=== PATIENT | male | born 1995 | race Caucasian/White ===

== ENCOUNTER → 2018-01-31 10:29 | Outpatient (REF) | payer SELFPAY | LOC: OM 10:29 | PROVIDERS: Visit Provider Nurse Practitioner Family | DX: Z02.83 Encounter for blood-alcohol and blood-drug test (principal) ==

== ENCOUNTER 2018-03-26 14:43 | Emergency (ER) | payer SELFPAY ==
[2018-03-26 14:48] VITALS: BP 146/60; PULSE 100; RESP 16; TEMP 38; O2SAT 98
--- NOTE | 2018-03-26 14:59 | W.ED.GENAD ---
Discharge Plan Disposition Patient Disposition: HOME Condition: Fair Discharge Details Chief Complaint: Sorethroat Clinical Impression: Pharyngitis Primary Care Provider: Maxine Coyle ED Provider: Court Pitt Home Meds and New Rx's Prescriptions: No Action No Known Home Meds RF: 0 Discharge Instructions Instructions: Pharyngitis (ED) Additional Instructions: Encourage hydration. Tylenol and/or ibuprofen as needed for discomfort or fever. Please follow-up with primary care if not improved in the next 1-2 weeks. If you develop difficulty breathing, shortness of breath, inability to stay hydrated or other new/worsening symptoms please seek care urgently once again. Please wash her hands frequently particularly when around her baby and wear a mask Referrals: Maxine Coyle MD [Primary Care Provider] - ([phone]) Discharge Data Discharge Date/Time-TO BE ENTERED AT DEPARTURE: 03/26/18 15:12 Medical Decision Making Patient is a 22-year-old male presenting today with chief complaint of sore throat. He reports that yesterday he began feeling ill. Is endorsing congestion, mild cough and sore throat. Denies any pain in his ears. States that today he noted fever. Patient is currently 38.0 ?C. He appears nontoxic. On exam, ears are clear. He does have some swelling and erythema to posterior oropharynx. No exudate. Lungs are clear bilaterally with no wheezes rales or rhonchi. Plan to treat fever with ibuprofen. He does report that he took cold medicine this morning which likely had acetaminophen in it. Patient does have a baby upstairs. He reports he has been wearing a mask and washing his hands frequently Rapid strep testing from a nursing staff is negative. Discussed these findings with the patient. Advised that given the cough and runny nose is likely viral. Encourage hydration. Advised to continue with Tylenol and ibuprofen as needed for discomfort or fever. Encouraged frequent hand hygiene as well as wearing a mask when around his . We discussed new/worsening symptoms once he care urgently once again. Advise follow-up with primary care if all the symptoms have not resolved in the next 1-2 week. All questions and concerns were addressed and he is in agreement this plan HPI General Mode of arrival: ambulatory. Date/Time Provider Initiated Documentation: 03/26/18 14:56. Limitations to Documentation: no limitations. Information obtained by: patient. History of Present Illness 22 year old M presents to the emergency department with the chief complaint of sore throat, described as moderate, Quality is described as burning, and is localized to the mouth. and it has been constant. No relieving factors improve symptom(s), Other factors that worsen symptoms (swallowing) . Patient notes cough (reports it has been mild and nonproductive) and fever/chills; denies chest pain, headaches, loss of appetite, nausea/vomiting, rash and shortness of breath. Patient did receive the following treatments prior to arrival, cold therapy Related Data Home Medications Medication Instructions Recorded Confirmed Unknown [No Known Home Meds] 09/04/12 05/27/17 Allergies Allergy/AdvReac Type Severity Reaction Status Date / Time Penicillins Allergy Unverified 03/26/18 14:50 General Stated Complaint: Sorethroat YOVANNY: 4 Review of Systems Constitutional Reports as per HPI and Denies headache(s) Eyes Denies irritation ENT Reports as per HPI, Denies vertigo, Denies ear discharge, Denies otalgia, Denies headache(s), Reports nasal congestion, Reports nasal discharge, Denies sinus pain, Denies sinus pressure and Reports sore throat Cardiovascular Denies chest pain Respiratory Reports as per HPI, Reports chest congestion, Reports cough and Denies hemoptysis Gastrointestinal Denies change in bowel habits, Denies nausea and Denies vomiting Integumentary/Breasts Denies rash Neurologic Denies vertigo and Denies headache(s) [facility] Social History Smoking/Tobacco Use Status: Former Tobacco Use Exam Const General: cooperative, healthy appearing, comfortable, no acute distress, well developed and well groomed Nutritional Appearance: average body habitus and well nourished Orientation: alert and awake [facility] Head: normal to inspection and normocephalic Ears: hearing grossly normal bilaterally, external ears normal and TM's normal bilaterally General nose exam: external nose normal Face and sinus: normal facial exam, sinuses nontender and no tenderness Mouth: oral mucosae normal, lip normal, tongue normal, oropharynx normal and moist mucous membranes Teeth and gingiva: dentition normal Throat: uvula midline, abnormal tonsil bilaterally erythema and hypertrophy 1+, no peritonsillar masses, uvula not displaced and no uvular edema Eyes General: appearance normal, both eyes and all related structures Neck Neck: normal visual inspection, full ROM, no lymphadenopathy and no meningeal signs Resp Effort & Inspection: normal respiratory effort, able to speak in complete sentences and no respiratory distress Auscultation: clear to auscultation bilaterally, no rales, no rhonchi and no wheezes Cardio Rate: regular rate Rhythm: regular rhythm Heart Sounds: S1 normal and S2 normal Skin General skin exam: no rashes or lesions noted Neuro General: alert and awake Cognition: normal cognition Speech: speech normal Gait: normal gait Psych Appearance: grossly normal and well kempt Mental Status: mental status grossly normal Speech and Movement: speech and movement normal Course Vital Signs Temperature 38.0 C H 03/26/18 14:48 Pulse 100 H 03/26/18 14:48 Respiratory Rate 16 03/26/18 14:48 Blood Pressure 146/60 H 03/26/18 14:48 Pulse Oximetry 98 03/26/18 14:48 Temperature 38.0 C H 03/26/18 14:48 Temperature Source Temporal Artery Scan 03/26/18 14:48 Pulse 100 H 03/26/18 14:48 Respiratory Rate 16 03/26/18 14:48 Respiratory Effort 03/26/18 14:50 Blood Pressure 146/60 H 03/26/18 14:48 Blood Pressure Position Sitting 03/26/18 14:48 Pulse Oximetry 98 03/26/18 14:48 Oxygen Delivery Method Room Air 03/26/18 14:48 Oxygen Flow Rate 0 03/26/18 14:48 Pain Level 6 03/26/18 14:48
[2018-03-26] MEDS: Ibuprofen 800 MG TAB PO (15:02)
--- NOTE | 2018-03-26 15:09 | ED.GENADUL_ITS ---
Discharge Plan Disposition Patient Disposition: HOME Condition: Fair Discharge Details Chief Complaint: Sorethroat Clinical Impression: Pharyngitis Primary Care Provider: Maxine Coyle ED Provider: Court Pitt Home Meds and New Rx's Prescriptions: No Action No Known Home Meds RF: 0 Discharge Instructions Instructions: Pharyngitis (ED) Additional Instructions: Encourage hydration. Tylenol and/or ibuprofen as needed for discomfort or fever. Please follow-up with primary care if not improved in the next 1-2 weeks. If you develop difficulty breathing, shortness of breath, inability to stay hydrated or other new/worsening symptoms please seek care urgently once again. Please wash her hands frequently particularly when around her baby and wear a mask Referrals: Maxine Coyle MD [Primary Care Provider] - ([phone]) Discharge Data Discharge Date/Time-TO BE ENTERED AT DEPARTURE: 03/26/18 15:12 Medical Decision Making Patient is a 22-year-old male presenting today with chief complaint of sore throat. He reports that yesterday he began feeling ill. Is endorsing congestion, mild cough and sore throat. Denies any pain in his ears. States that today he noted fever. Patient is currently 38.0 ?C. He appears nontoxic. On exam, ears are clear. He does have some swelling and erythema to posterior oropharynx. No exudate. Lungs are clear bilaterally with no wheezes rales or rhonchi. Plan to treat fever with ibuprofen. He does report that he took cold medicine this morning which likely had acetaminophen in it. Patient does have a baby upstairs. He reports he has been wearing a mask and washing his hands frequently Rapid strep testing from a nursing staff is negative. Discussed these findings with the patient. Advised that given the cough and runny nose is likely viral. Encourage hydration. Advised to continue with Tylenol and ibuprofen as needed for discomfort or fever. Encouraged frequent hand hygiene as well as wearing a mask when around his . We discussed new/worsening symptoms once he care urgently once again. Advise follow-up with primary care if all the symptoms have not resolved in the next 1-2 week. All questions and concerns were addressed and he is in agreement this plan HPI General Mode of arrival: ambulatory . Date/Time Provider Initiated Documentation: 03/26/18 14:56 . Limitations to Documentation: no limitations . Information obtained by: patient . History of Present Illness 22 year old M presents to the emergency department with the chief complaint of sore throat, described as moderate, Quality is described as burning, and is localized to the mouth. and it has been constant. No relieving factors improve symptom(s), Other factors that worsen symptoms (swallowing) . Patient notes cough (reports it has been mild and nonproductive) and fever/ chills; denies chest pain, headaches, loss of appetite, nausea/vomiting, rash and shortness of breath. Patient did receive the following treatments prior to arrival, cold therapy Related Data Home Medications Medication Instructions Recorded Confirmed Unknown [No Known Home Meds] 09/04/12 05/27/17 Allergies Allergy/AdvReac Type Severity Reaction Status Date / Time Penicillins Allergy Unverified 03/26/18 14:50 General Stated Complaint: Sorethroat YOVANNY: 4 Review of Systems Constitutional Reports as per HPI and Denies headache(s) Eyes Denies irritation ENT Reports as per HPI, Denies vertigo, Denies ear discharge, Denies otalgia, Denies headache(s), Reports nasal congestion, Reports nasal discharge, Denies sinus pain, Denies sinus pressure and Reports sore throat Cardiovascular Denies chest pain Respiratory Reports as per HPI, Reports chest congestion, Reports cough and Denies hemoptysis Gastrointestinal Denies change in bowel habits, Denies nausea and Denies vomiting Integumentary/Breasts Denies rash Neurologic Denies vertigo and Denies headache(s) [facility] Social History Smoking/Tobacco Use Status: Former Tobacco Use Exam Const General: cooperative, healthy appearing, comfortable, no acute distress, well developed and well groomed Nutritional Appearance: average body habitus and well nourished Orientation: alert and awake [facility] Head: normal to inspection and normocephalic Ears: hearing grossly normal bilaterally, external ears normal and TM's normal bilaterally General nose exam: external nose normal Face and sinus: normal facial exam, sinuses nontender and no tenderness Mouth: oral mucosae normal, lip normal, tongue normal, oropharynx normal and moist mucous membranes Teeth and gingiva: dentition normal Throat: uvula midline, abnormal tonsil bilaterally erythema and hypertrophy 1+, no peritonsillar masses, uvula not displaced and no uvular edema Eyes General: appearance normal, both eyes and all related structures Neck Neck: normal visual inspection, full ROM, no lymphadenopathy and no meningeal signs Resp Effort & Inspection: normal respiratory effort, able to speak in complete sentences and no respiratory distress Auscultation: clear to auscultation bilaterally, no rales, no rhonchi and no wheezes Cardio Rate: regular rate Rhythm: regular rhythm Heart Sounds: S1 normal and S2 normal Skin General skin exam: no rashes or lesions noted Neuro General: alert and awake Cognition: normal cognition Speech: speech normal Gait: normal gait Psych Appearance: grossly normal and well kempt Mental Status: mental status grossly normal Speech and Movement: speech and movement normal Course Vital Signs Temperature 38.0 C H 03/26/18 14:48 Pulse 100 H 03/26/18 14:48 Respiratory Rate 16 03/26/18 14:48 Blood Pressure 146/60 H 03/26/18 14:48 Pulse Oximetry 98 03/26/18 14:48 Temperature 38.0 C H 03/26/18 14:48 Temperature Source Temporal Artery Scan 03/26/18 14:48 Pulse 100 H 03/26/18 14:48 Respiratory Rate 16 03/26/18 14:48 Respiratory Effort 03/26/18 14:50 Blood Pressure 146/60 H 03/26/18 14:48 Blood Pressure Position Sitting 03/26/18 14:48 Pulse Oximetry 98 03/26/18 14:48 Oxygen Delivery Method Room Air 03/26/18 14:48 Oxygen Flow Rate 0 03/26/18 14:48 Pain Level 6 03/26/18 14:48
[2018-03-26 15:12] VITALS: PULSE 93
== END 2018-03-26 15:12 | disposition home or self-care (01) ==
LOC: ER 15:19
PROVIDERS: Emergency Provider Physician Assistant
DX: J02.9 Acute pharyngitis, unspecified (principal); Z87.891 Personal history of nicotine dependence
CPT/HCPCS: 87880; 99282

== ENCOUNTER 2019-05-12 18:39 | Emergency (ER) | payer SELFPAY ==
[2019-05-12 18:44] VITALS: BP 152/64; PULSE 77; RESP 18; TEMP 36.9; O2SAT 99
--- NOTE | 2019-05-12 19:16 | ED.GENADUL_ITS ---
Discharge Plan Disposition Patient Disposition: HOME Discharge Details Chief Complaint: DentalOral Clinical Impression: Dental infection Primary Care Provider: Fazal Tobar ED Provider: Brody Funk Home Meds and New Rx's Prescriptions: New clindamycin HCl 150 mg capsule 450 mg PO TID Qty: 57 RF: 0 No Action No Known Home Meds RF: 0 Discharge Instructions Instructions: Clindamycin (By mouth), Dental Abscess (ED) Additional Instructions: Please take full course of antibiotic as prescribed. Please take ibuprofen over the counter. Take 600mg by mouth every 6 hours as needed for pain. Please take acetaminophen (tylenol) - 650mg every 6 hours by mouth as needed for pain. Please follow-up with your dentist. Referrals: Fazal Tobar MD [Primary Care Provider] - Discharge Data Discharge Date/Time-TO BE ENTERED AT DEPARTURE: 05/12/19 20:05 Medical Decision Making 23yo m with poor dentition here with rt lower dental pain since yesterday. Mild associated facial swelling. Plan to treat for periapical abscess. Patient provided informed consent to incision and drainage. I/D performed without complication. Patient has PCN allergy. Will treat with clindamycin and have him follow-up with his dentist. Usual and customary discharge instructions were provided. Patient verbalized understanding of instructions. HPI General Mode of arrival: ambulatory . Date/Time Provider Initiated Documentation: 05/12/19 19:02 . Limitations to Documentation: no limitations . Information obtained by: patient . HPI Narrative: 23yo m former smoker here with rt molar dental pain. Pain is moderate to severe, progressive since onset yesterday. Worse on palpation. Associated mild facial swelling on right. No fever. Related Data Home Medications Medication Instructions Recorded Confirmed Unknown [No Known Home Meds] 09/04/12 05/27/17 clindamycin HCl 450 mg PO TID #57 cap 05/12/19 Previous Rx's Medication Instructions Recorded clindamycin HCl 450 mg PO TID #57 cap 05/12/19 Allergies Allergy/AdvReac Type Severity Reaction Status Date / Time Penicillins Allergy Unverified 05/14/19 13:01 General Stated Complaint: DentalOral YOVANNY: 4 Review of Systems Constitutional Constitutional: Denies fever(s) ENT Ears, Nose, Mouth, and Throat: Reports as per HPI [facility] Social History (System 05/14/19 @ 13:01 by Martha Layton Smoking/Tobacco Use Status: Former Tobacco Use Drug use: Daily Substance use type: marijuana Do you feel safe at home: Yes Do you feel safe in your relationship?: Yes Exam Const General: cooperative and no acute distress [facility] Head: normocephalic and atraumatic General nose exam: external nose normal and nares normal Face and sinus: edema on the right mandible Mouth: tongue normal, moist mucous membranes, no drooling and no muffled voice Teeth and gingiva: poor dentition and other (rt lower molar swelling along gumline, tender to palpation) Throat: posterior oropharynx normal Other: no stridor, no submandibular swelling, no trismus Eyes Conjunctivae: normal conjunctivae Sclera: normal sclerae EOM: EOM intact bilaterally Neck Neck: trachea midline and supple Skin General skin exam: no rashes or lesions noted Neuro General: alert, awake and tone normal Course Vital Signs Vital signs: Vital Signs Temperature 36.9 C 05/12/19 18:44 Pulse 77 05/12/19 18:44 Respiratory Rate 18 05/12/19 18:44 Blood Pressure 152/64 H 05/12/19 18:44 Pulse Oximetry 99 05/12/19 18:44 Temperature 36.9 C 05/12/19 18:44 Temperature Source Skin 05/12/19 18:44 Pulse 77 05/12/19 18:44 Respiratory Rate 18 05/12/19 18:44 Respiratory Effort Non-Labored 05/12/19 18:46 Blood Pressure 152/64 H 05/12/19 18:44 Blood Pressure Position Sitting 05/12/19 18:44 Pulse Oximetry 99 05/12/19 18:44 Oxygen Delivery Method Room Air 05/12/19 18:44 Oxygen Flow Rate 0 05/12/19 18:44 Pain Level 9 05/12/19 18:44 Procedures Abscess I/D Site: Other (periapical dental) Side (if applicable): Right Local Anesthetic: Other Anesthetic (benzocaine mucosal gel) Technique: Incised with #11 Blade Amount of fluid expressed (mL): 1 Irrigation: No Packing used?: None Complications: Other (none)
[2019-05-12] MEDS: Benzocaine 20% Gel 30 GM JAR MM (19:37)
[2019-05-12] MEDS: Acetaminophen 325 MG TAB 650 MG PO (19:57)
[2019-05-12] MEDS: oxyCODONE 5 MG TAB PO (19:57)
[2019-05-12] MEDS: Clindamycin 150 MG CAP 450 MG PO ×2 (19:58)
[2019-05-12 20:04] VITALS: BP 129/76; PULSE 94; RESP 17; TEMP 36.9; O2SAT 99
== END 2019-05-12 20:05 | disposition home or self-care (01) ==
LOC: ER 20:09
PROVIDERS: Emergency Provider Student in an Organized Health Care Education/Training Program; PCP Internal Medicine
DX: R68.84 Jaw pain (principal); K04.7 Periapical abscess without sinus; R22.0 Localized swelling, mass and lump, head
CPT/HCPCS: 41800

== ENCOUNTER 2020-01-27 22:24 | Emergency (ER) | payer MEDICAID, SELFPAY ==
[2020-01-27 22:52] VITALS: BP 126/68; PULSE 93; RESP 14; TEMP 37.1; O2SAT 98
--- NOTE | 2020-01-27 22:53 | ED.GENADUL_ITS ---
Discharge Plan Disposition Patient Disposition: HOME Condition: Stable Discharge Details Chief Complaint: Sorethroat Clinical Impression: Streptococcal sore throat Primary Care Provider: Fazal Tobar ED Provider: Kiara Vance Home Meds and New Rx's Prescriptions: New clindamycin HCl 300 mg capsule 300 mg PO BID 10 Days Qty: 20 RF: 0 No Action clindamycin HCl 150 mg capsule 450 mg PO TID Qty: 57 RF: 0 Discharge Instructions Instructions: Strep Throat (ED) Additional Instructions: Gargle with warm salt water up to 3 times a day as needed. Follow up with primary care provider in 3-5 days. Return to ED sooner if any worsening or concerns. Increase oral fluids. Please take Tylenol or Ibuprofen with food ever y 4-6 hours as needed for pain and swelling. Take antibiotics as prescribed. Stand Alone Forms: Work Release Referrals: Fazal Tobar MD [Primary Care Provider] - Medical Decision Making 24-year-old male presents to the ER with chief complaint of sore throat which began on Tuesday. Associated with dry nonproductive cough and body aches. Denies fever or any sick contacts. Denies any abdominal pain diarrhea or any other complaints. On initial exam does have erythemic posterior pharynx tonsils are 3+ bilaterally with positive exudate. Uvula is midline. No stridor. He does have a slightly muffled voice. 2301: At this time dexamethasone 2 mg p.o. given and clindamycin 300 mg p.o. Rapid strep swab is positive for strep throat. Discharge instructions given to patient, verbalized understanding. Instructed to salt water gargles 3 times a day as needed take Tylenol or ibuprofen every 4- 6 hours. Clindamycin 300 mg p.o. twice daily x10 days was prescribed. HPI General Mode of arrival: ambulatory . Date/Time Provider Initiated Documentation: 01/27/20 22:44 . Limitations to Documentation: no limitations . Information obtained by: patient . HPI Narrative: 24-year-old male presents to the ER with chief complaint of sore throat which began on Tuesday. Associated with dry nonproductive cough and body aches. Denies fever or any sick contacts. Denies any abdominal pain diarrhea or any other complaints. On initial exam does have erythemic posterior pharynx tonsils are 3+ bilaterally with positive e xudate. Uvula is midline. No stridor. He does have a slightly muffled voice. Related Data Home Medications Medication Instructions Recorded Confirmed clindamycin HCl 450 mg PO TID #57 cap 05/12/19 clindamycin HCl 300 mg PO BID 10 Days #20 cap 01/27/20 Previous Rx's Medication Instructions Recorded clindamycin HCl 450 mg PO TID #57 cap 05/12/19 clindamycin HCl 300 mg PO BID 10 Days #20 cap 01/27/20 Allergies Allergy/AdvReac Type Severity Reaction Status Date / Time Penicillins Allergy Unverified 05/14/19 13:01 General YOVANNY: 4 Review of Systems All systems reviewed & are unremarkable except as noted in HPI and below ENT Ears, Nose, Mouth, and Throat: Reports sore throat, Reports throat swelling and Denies tongue swelling Cardiovascular Cardiovascular: Denies chest pain and Denies chest pain at rest Respiratory Respiratory: Reports cough (Dry nonproductive) Hematologic/Lymphatic Hematologic/Lymphatic: Reports as per HPI and Reports lymphadenopathy (Positive anterior cervical lymphadenopathy) Allergic/Immunologic Allergic/Immunologic: Reports throat swelling and Denies tongue swelling [facility] Social History Smoking/Tobacco Use Status: Former Tobacco Use Drug use: Daily Substance use type: marijuana Do you feel safe at home: Yes Do you feel safe in your relationship?: Yes Exam Narrative Exam Narrative: Constitutional: Alert and oriented x3. Appears stated age. Normal body habitus. Head: Normocephalic, no trauma. Eyes: Pupils PERRLA, Red reflex noted, EOM's intact. Eyelids symmetrical without lesions, discharge, or swelling. ENT: Bilateral TM's WNL, External ear normal to inspection, no mastoid TTP, swelling, or erythema, Nasal turbinates WNL, no nasal discharge. Poor dent ition. Posterior pharynx is erythemic, positive exudate bilaterally, 3+ tonsils bilaterally uvula is midline. No stridor. Chest: RRR, Normal S1, S2, distal pulses intact. Resp: Lungs clear to auscultation bilaterally, no wheezes, rales, or rhonchi. Musculoskeletal: Normal gait, 5/5 strength to all four extremities. Skin: No suspicious rashes or lesions. Capillary refill less than 2 sec. Neurologic: Cranial nerves II-XII intact. Alert and oriented x 3. DTR's intact. Hematologic/Lymphatic: No ecchymosis, positive anterior cervical lymphadenopathy.
[2020-01-27] MEDS: Clindamycin 300 MG CAP PO (23:20)
[2020-01-27] MEDS: Dexamethasone 10 MG/ML VIAL PO (23:20)
[2020-01-27] MEDS: Ibuprofen 600 MG TAB PO (23:21)
== END 2020-01-27 23:25 | disposition home or self-care (01) ==
PROVIDERS: Emergency Provider Registered Nurse Emergency; PCP Internal Medicine
DX: J02.0 Streptococcal pharyngitis (principal)
CPT/HCPCS: 99283; J1100

== ENCOUNTER 2020-02-05 08:47 | Emergency (ER) | payer MEDICAID, SELFPAY ==
[2020-02-05 08:50] VITALS: BP 134/54; PULSE 84; RESP 16; TEMP 36.7; O2SAT 95
--- NOTE | 2020-02-05 09:12 | ED.GENADUL_ITS ---
Discharge Plan Disposition Patient Disposition: HOME Condition: Stable Discharge Details Chief Complaint: DentalOral Clinical Impression: Candidiasis of mouth Primary Care Provider: Fazal Tobar ED Provider: Kiara Vance Home Meds and New Rx's Prescriptions: New nystatin 100,000 unit/mL suspension 1 ml BC TID 10 Days Qty: 60 RF: 0 No Action clindamycin HCl 300 mg capsule 300 mg PO BID 10 Days Qty: 20 RF: 0 Discharge Instructions Instructions: Oral Candidiasis (ED) Additional Instructions: Swish and spit nystatin suspension up to 3 times a day as directed. Continue taking antibiotics as previously prescribed. Ursa teeth at least twice a day. Practice good oral hygiene. May also gargle with warm salt water up to 3 times a day as needed. Please take Tylenol or Ibuprofen with food every 4-6 hours as needed for pain and swelling. Follow up with primary care provider in 3-5 days. Return to ED sooner if any worsening or concerns. Increase oral fluids. Referrals: Fazal Tobar MD [Primary Care Provider] - Discharge Data Discharge Date/Time-TO BE ENTERED AT DEPARTURE: 02/05/20 09:47 Medical Decision Making <Willy Khan MD - Last Filed: 02/05/20 09:15> I had a [id number] encounter with the patient. I evaluated the patient. I discussed case with DRAPERY HANGER/PA and I reviewed DRAPERY HANGER/PA note and agree with note as documented <Kiara Vance - Last Filed: 02/05/20 11:11> 24-year-old male presents the ER with complaint of tongue problem. He reports on Tuesday he bit the right side of his tongue which now has a white lesion noted to the lateral and. He is currently taking clindamycin for strep throat infection. Reports having about 3 to 4 days left of prescription. He denies smoking, reports he has been gargling with warm salt water couple times a day. Upon initial exam does appear to have a white coating to his tongue possibly thrush in nature. Discussed good oral hygiene, verbalized understanding. Denies any fever, chills, chest pain, shortness of breath or any other complaints at this time. We will send patient home with nystatin oral suspension for possible thrush related to antibiotic use, was given Magic mouthwash here in department and sent home with rest of bottle instructed to alternate nystatin and Magic mouthwash as needed for symptoms. Patient verbalized understanding. Instructed on improving oral hygiene. HPI <Willy Khan MD - Last Filed: 02/05/20 09:15> General Date/Time Provider Initiated Documentation: 02/05/20 09:04 . Related Data Home Medications Medication Instructions Recorded Confirmed clindamycin HCl 300 mg PO BID 10 Days #20 cap 01/27/20 02/05/20 nystatin 1 ml BC TID 10 Days #60 ml 02/05/20 Previous Rx's Medication Instructions Recorded clindamycin HCl 300 mg PO BID 10 Days #20 cap 01/27/20 nystatin 1 ml BC TID 10 Days #60 ml 02/05/20 Allergies Allergy/AdvReac Type Severity Reaction Status Date / Time Penicillins Allergy Unverified 05/14/19 13:01 <Kiara Vance - Last Filed: 02/05/20 11:11> General Mode of arrival: ambulatory . Limitations to Documentation: no limitations . Information obtained by: patient . HPI Narrative: 24-year-old male presents the ER with complaint of tongue problem. He reports on Tuesday he bit the right side of his tongue which now has a white lesion noted to the lateral and. He is currently taking clindamycin for strep throat infection. Reports having about 3 to 4 days left of prescription. He denies smoking, reports he has been gargling with warm salt water couple times a day. Upon initial exam does appear to have a white coating to his tongue possibly thrush in nature. Discussed good oral hygiene, verbalized understanding. Denies any fever, chills, chest pain, shortness of breath or any other complaints at this time. General Stated Complaint: DentalOral YOVANNY: 4 <Kiara Vance - Last Filed: 02/05/20 11:11> Narrative: Constitutional: Negative for weight loss, alert and oriented, well groomed, normal body habitus, appears comfortable. HEENT: Denies trauma, headaches, blurry vision, nasal discharge, history of strep throat, tongue pain lesion to the right side of his tongue.. Chest: Denies chest pain, palpitations, irregular rhythm, hypertension. Respiratory: Denies Shortness of breath, cough, hemoptysis. GI: Denies abdominal pain, nausea, vomiting, diarrhea, constipation. : Denies dysuria, hematuria, flank pain, rectal bleeding. Neuro: Denies dizziness, blurry vision, weakness, syncope, headache or facial numbness. Hematologic: Denies easy bruising, intolerance to heat or cold, hair loss. PFSH <Willy Khan MD - Last Filed: 02/05/20 09:15> Social History Smoking/Tobacco Use Status: Former Tobacco Use Drug use: Daily Substance use type: marijuana Do you feel safe at home: Yes Do you feel safe in your relationship?: Yes Exam <Willy Khan MD - Last Filed: 02/05/20 09:15> [facility] Mouth/tongue images: 1. White lesion 2. White thick coating noted to tongue, adherent nonremovable. Possible thrush. <Kiara Vance - Last Filed: 02/05/20 11:11> Narrative Exam Narrative: Constitutional: Alert and oriented x3. Appears stated age. Normal body habitus. Head: Normocephalic, no trauma. Eyes: Pupils PERRLA, Red reflex noted, EOM's intact. Eyelids symmetrical without lesions, discharge, or swelling. ENT: Bilateral TM's WNL, External ear normal to inspection, no mastoid TTP, swelling, or erythema, Nasal turbinates WNL, no nasal discharge. Poor dentition, posterior pharynx erythemic no exudate. Tonsils 2+ bilaterally uvula is midline, does have white coating noted to his tongue, there is a lesion noted white approximately 0.5 cm to the right lateral aspect of his tongue. See below. Hematologic/Lymphatic: No ecchymosis, no lymphadenopathy. [facility] Head: normal to inspection Mouth/tongue images: 1. White lesion 2. White thick coating noted to tongue, adherent nonremovable. Possible thrush. <Kiara Vance - Last Filed: 02/05/20 11:11> Vital Signs Vital signs: Vital Signs Temperature 36.7 C 02/05/20 08:50 Pulse 84 02/05/20 08:50 Respiratory Rate 16 02/05/20 08:50 Blood Pressure 134/54 L 02/05/20 08:50 Pulse Oximetry 95 02/05/20 08:50 Temperature 36.7 C 02/05/20 08:50 Temperature Source Temporal Artery Scan 02/05/20 08:50 Pulse 84 02/05/20 08:50 Respiratory Rate 16 02/05/20 08:50 Respiratory Effort 02/05/20 08:54 Blood Pressure 134/54 L 02/05/20 08:50 Blood Pressure Position Sitting 02/05/20 08:50 Pulse Oximetry 95 02/05/20 08:50 Oxygen Delivery Method Room Air 02/05/20 08:50 Oxygen Flow Rate 0 02/05/20 08:50 Pain Level 8 02/05/20 09:01
[2020-02-05] MEDS: Magic Mouthwash 119 ML BTL 10 ML MM (09:35)
== END 2020-02-05 09:47 | disposition home or self-care (01) ==
PROVIDERS: Emergency Provider Registered Nurse Emergency; PCP Internal Medicine
DX: B37.0 Candidal stomatitis (principal); J02.0 Streptococcal pharyngitis
CPT/HCPCS: 99283

== ENCOUNTER 2020-09-03 16:59 | Emergency (ER) | payer MEDICAID, SELFPAY ==
[2020-09-03 17:03] VITALS: BP 149/81; PULSE 89; RESP 16; TEMP 37.1; O2SAT 96
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
[2020-09-03 19:50] VITALS: BP 129/87; PULSE 76; RESP 18; TEMP 36.7; O2SAT 98
== END 2020-09-03 21:49 | disposition home or self-care (01) ==
PROVIDERS: Emergency Provider Physician Assistant; PCP Internal Medicine
DX: S96.211A Strain of intrinsic muscle and tendon at ankle and foot level, right foot, initial encounter (principal); S06.0X0A Concussion without loss of consciousness, initial encounter; V48.5XXA Car driver injured in noncollision transport accident in traffic accident, initial encounter
CPT/HCPCS: 99284; 70450; 72125; 73610

== ENCOUNTER 2023-03-07 11:23 | Emergency (ER) | payer MEDICAID, SELFPAY ==
[2023-03-07 11:30] VITALS: BP 121/78; PULSE 63; RESP 20; TEMP 36.6; O2SAT 100
[2023-03-07 13:45] VITALS: RESP 18
--- NOTE | 2023-03-07 13:54 | ED.GENADUL_ITS ---
Discharge Plan Disposition Patient Disposition: Home Condition: Good Discharge Details Clinical Impression: Arthralgia, Muscle spasm Primary Care Provider: Fazal Tobar ED Provider: Court Pitt Home Meds and New Rx's Prescriptions: Continued methadone 10 mg/mL Syringe 100 mg PO DAILY Patient Comments: states no longer taking Discharge Instructions Instructions: Muscle Spasm (ED) Additional Instructions: Your labs are reassuring here today. As we discussed, your tick and Lyme panel is still pending. This will take about 5 business days to come back. We will call you with any positive results. In the interim, please encourage hydration. Tylenol and ibuprofen as needed for discomfort. Please call your primary care and follow-up in 1 week for reevaluation. If you develop any other new or worsening symptoms please seek care urgently once again Referrals: Fazal Tobar MD [Primary Care Provider] - Discharge Data Discharge Date/Time-TO BE ENTERED AT DEPARTURE: 03/07/23 15:17 Medical Decision Making Patient is a pleasant 27-year-old male presenting today with chief complaint of intermittent sharp pain x2 weeks. He states that the pain is primarily in the left side but can be on the right. When she has a sudden onset of pain it can be fairly diffuse and last a few minutes and suddenly stopped. He denies any fevers or chills. No trauma. States that he has had a large amount of increased stress around social issues. 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 Denies any suicidality and does feel that he has good coping skills. States he can occasionally get some tingling in his fingers but no numbness or weakness. More pain. Occasionally, patient has muscle spasms. Also endorses some fatigue On exam, patient appears nontoxic. Resting comfortably. He is neurologically intact. Normal cardiac and respiratory auscultation. No rash. Considered thyroid dysfunction regarding his fatigue, tickborne illness, electrolyte abnormality leading to muscle spasm. He declines any analgesics at this time. Will obtain baseline labs for further evaluation. Labs reviewed, no acute abnormality. Tick and Lyme panel pending. Discussed with patient. Discussed MH and he would like to hold off at this time. Encouraged stress reduction. Encouraged hydration, supportive care. ADvised close f/u with PCP. All of his questions and concerns were addressed, he is in agreement with this plan. HPI General Date/Time Provider Initiated Documentation: 03/07/23 13:54 . Limitations to Documentation: no limitations . Information obtained by: patient and RN notes reviewed . History of Present Illness 27 year old M presents to the emergency department with the chief complaint of diffuse arthralgias, more on the left side of the body , described as moderate, with intensity rated at 4. Quality is described as sharp, Patient started experiencing this week(s) and it has been intermittent. No relieving factors improve symptom(s), No exacerbating factors reported . Patient notes malaise; denies chest pain, cough, fever/chills, headaches, loss of appetite, nausea/vomiting, rash, shortness of breath and weakness. Patient did receive the following treatments prior to arrival, none Related Data Home Medications Medication Instructions Recorded Confirmed methadone 10 mg/mL oral syringe 100 mg PO DAILY 09/03/20 09/03/20 (FOR ORAL USE ONLY) Allergies Allergy/AdvReac Type Severity Reaction Status Date / Time Penicillins Allergy Unverified 03/07/23 11:34 General Stated Complaint: GenMedical YOVANNY: 4 Review of Systems Constitutional Constitutional: Reports as per HPI, Denies chills, Denies fatigue, Denies fever(s), Denies frequent falls and Denies headache(s) Eyes Eyes: Denies change in vision ENT Ears, Nose, Mouth, and Throat: Denies headache(s) Cardiovascular Cardiovascular: Denies chest pain, Denies dyspnea and Denies dyspnea on exertion Respiratory Respiratory: Denies cough, Denies dyspnea and Denies dyspnea on exertion Gastrointestinal Gastrointestinal: Denies abdominal pain, Denies change in bowel habits and Denies fecal incontinence Genitourinary Genitourinary: Reports as per HPI, Denies urinary hesitancy and Denies urinary incontinence Musculoskeletal Musculoskeletal: Reports as per HPI, Denies muscle weakness, Denies numbness, Reports stiffness and Reports tingling (intermittent tingling in fingers, none currently) Integumentary/Breasts Skin/Breast: Reports as per HPI and Denies rash Neurologic Neurologic: Reports as per HPI, Denies frequent falls, Denies headache(s), Denies localized weakness, Denies numbness, Denies sensory deficit, Reports tingling (intermittent tingling in fingers, none currently) and Denies paresthesias Endocrine Endocrine: Denies fatigue PFSH All Active Problems (Updated 03/07/23 @ 15:08 by FERMIN Caldwell) Concussion (Acute) Ankle strain (Acute) Arthralgia (Acute) Muscle spasm (Acute) Social History Smoking/Tobacco Use Status: Former Tobacco Use Smoking risk assessment performed?: Yes Alcohol Intake: current Alcohol Intake frequency: a few times a week Drug use: Occasionally Substance use type: marijuana 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 Do you feel safe at home: Yes Do you feel safe in your relationship?: Yes Exam Const General: cooperative, healthy appearing, comfortable, no acute distress, well developed, well groomed and anxious Nutritional Appearance: average body habitus and well nourished Orientation: alert and awake Eyes General: appearance normal, both eyes and all related structures Neck Neck: normal visual inspection, full ROM, no lymphadenopathy and no meningeal signs Resp Effort & Inspection: normal respiratory effort and able to speak in complete sentences Auscultation: clear to auscultation bilaterally, no rales, no rhonchi and no wheezes Cardio Rate: regular rate Rhythm: regular rhythm Heart Sounds: S1 normal and S2 normal Skin General skin exam: no rashes or lesions noted Neuro General: patient alert and patient awake Cranial Nerves: CN's II-XI intact bilaterally Cognition: normal cognition Speech: speech normal Gait: normal gait Motor: muscle tone normal throughout, strength 5/5 throughout, no movement abnormalities noted and no fasciculations Sensory Exam: no sensory deficits noted (no saddle paresthesias) DTR's: Rt Patellar: 2+, Lt Patellar: 2+, Rt Ankle: 2+ and Lt Ankle: 2+ Coordination: [id number] test normal and tandem gait normal Extrem General: normal to inspection, full ROM, capillary refill normal, no joint enlargement, no pedal edema, no calf tenderness and normal gait Psych Appearance: grossly normal and well kempt Mental Status: mental status grossly normal Speech and Movement: speech and movement normal Course Vital Signs Vital signs: Vital Signs Temperature 36.6 C 03/07/23 11:30 Pulse 63 03/07/23 11:30 Respiratory Rate 20 03/07/23 11:30 Blood Pressure 121/78 03/07/23 11:30 Pulse Oximetry 100 03/07/23 11:30 Temperature 36.6 C 03/07/23 11:30 Temperature Source Skin 03/07/23 11:30 Pulse 63 03/07/23 11:30 Respiratory Rate 18 03/07/23 13:45 Respiratory Effort Normal, Non-Labored 03/07/23 13:45 Respiratory Depth Normal 03/07/23 13:45 Respiratory Pattern Normal 03/07/23 13:45 Blood Pressure 121/78 03/07/23 11:30 Blood Pressure Position Sitting 03/07/23 11:30 Pulse Oximetry 100 03/07/23 11:30 Oxygen Delivery Method Room Air 03/07/23 11:30 Oxygen Flow Rate 0 03/07/23 11:30 Pain Level 4 03/07/23 11:30 PAWSS Have you Been Recently Intoxicated or Drunk Within the Last 30 days?: No Have you Ever Experienced Previous Episodes of Alcohol Withdrawal?: No Have you ever Experienced Withdrawal Seizures?: No Have you ever Experienced Delirium Tremens(DT)s?: No Have you ever undergone Alcohol Rehabilitation Treatment (i.e, inpt ot outpatient treatment programs)?: No Have you ever Experienced Blackouts?: No Have you ever Combined Alcohol with other Downers within the last 90 days?: No Have you ever Combined Alcohol with any other Substance of Abuse during the last 90 days?: No Positive Blood Alcohol level on Presentation? [PCS.BAL]: No Evidence of Increased Autonomic Activity (i.e. HR>120, tremor, sweating, agitation, nausea)?: No Result: 0
[2023-03-07 14:34] LABS: Abs Immature Grans 0.04 10^3/uL (0.0-0.06); Absolute Basophil Count 0.06 10^3/uL (0.0-0.2); Absolute Eosinophil Count 0.31 10^3/uL (0.0-0.7); Absolute Monocyte Count 0.63 10^3/uL (0.1-0.8); Absolute Neutrophil Count 6.22 10^3/uL (1.2-6.7); Basophils % 0.6; Eosinophils % 3.1; HCT 47.9 % (40.0-50.0); HGB 16.4 g/dL (13.5-17.5); Immature Grans % 0.4; Lymphocytes % 27.8; MCH 28.9 pg (27.0-33.0); MCHC 34.2 % (32.0-36.0); MCV 85 fL (80-95); MPV 10.9 fL (8.0-11.0); Monocytes % 6.3; Neutrophils % 61.8; Platelet Count 272 10^3/uL (130-400); RBC 5.67 10^6/uL (4.36-5.78); RDW-SD 40.3 fL; WBC 10.06 10^3/uL (4.4-10.8)
[2023-03-07 15:01] LABS: ALT 22 U/L (16-63); AST 12 U/L (15-37); Albumin 4.1 g/dL (3.4-5.0); Alkaline Phosphatase 60 U/L (46-116); Anion Gap 8.8 mmol/L (3-11); BUN 15 mg/dL (7-18); Bilirubin, Total 0.3 mg/dL (0.2-1.0); CO2 25.2 mmol/L (21.0-32.0); CREATININE 0.8 mg/dL (0.70-1.30); Calcium 9.4 mg/dL (8.5-10.1); Chloride 102 mmol/L (98-107); Estimated GFR 123.63 (mL/min/1.73m2); Glucose 95 mg/dL (74-106); Sodium 136 mmol/L (136-145); TSH (W/Ref FT4) 0.96 uIU/mL (0.36-3.74); Total Protein 8.4 g/dL (6.4-8.2)
[2023-03-07 15:16] VITALS: BP 130/75; PULSE 77; RESP 18; O2SAT 98
[2023-03-08 10:23] LABS: Lyme Ab w Rflx to Lyme Confirm Negative (Negative)
[2023-03-09 12:40] LABS: Anaplasma phagocytophilum Negative (Negative); B. miyamotoi PCR Negative (Negative); Babesia divergens/MO-1 Negative (Negative); Babesia duncani Negative (Negative); Babesia microti Negative (Negative); Ehrlichia chaffeensis Negative (Negative); Ehrlichia ewingii/canis Negative (Negative); Ehrlichia muris eauclairensis Negative (Negative)
== END 2023-03-07 15:17 | disposition home or self-care (01) ==
PROVIDERS: Emergency Provider Physician Assistant; PCP Internal Medicine
DX: M79.18 Myalgia, other site (principal); M62.838 Other muscle spasm; Z87.891 Personal history of nicotine dependence
CPT/HCPCS: 36415; 80053; 87798; 99283; 83735; 84443; 85025; 86618

== ENCOUNTER 2023-09-24 20:49 | Emergency (ER) | payer SELFPAY ==
[2023-09-24 20:50] VITALS: BP 163/88; PULSE 115; RESP 20; TEMP 37.3; O2SAT 97
--- NOTE | 2023-09-24 21:29 | ED.GENADUL_ITS ---
Discharge Plan Disposition Patient Disposition: Home Condition: Improving Discharge Details Clinical Impression: Cellulitis of foot Primary Care Provider: Fazal Tobar ED Provider: Ollie Fatima Home Meds and New Rx's Prescriptions: New clindamycin HCl 300 mg capsule 300 mg PO Q6H 7 Days Qty: 28 0RF Discharge Instructions Instructions: Cellulitis (ED) Additional Instructions: Please return to the emergency department for any worsening symptoms HPI General Date/Time Provider Initiated Documentation: 09/24/23 21:16 . HPI Narrative: 27-year-old male who presents with right foot swelling since last night pain redness and warmth. Related Data Home Medications Medication Instructions Recorded Confirmed clindamycin HCl 300 mg capsule 300 mg PO Q6H 7 days #28 caps 09/24/23 Previous Rx's Medication Instructions Recorded clindamycin HCl 300 mg capsule 300 mg PO Q6H 7 days #28 caps 09/24/23 Allergies Allergy/AdvReac Type Severity Reaction Status Date / Time Penicillins Allergy Anaphylaxis Unverified 09/24/23 20:54 General Stated Complaint: Cellulitis YOVANNY: 3 Review of Systems Narrative: Review of Systems Constitutional: negative Eyes: negative ENT: negative Cardiovascular: negative Respiratory: negative Gastrointestinal: negative : negative Musculoskeletal: Foot pain, redness, warmth Skin: negative Neurologic: negative Psych: negative Exam Narrative Exam Narrative: Physical Examination General: alert, awake, cooperative, resting comfortably, no acute distress HEENT: normocephalic, atraumatic Respiratory: normal respiratory effort, speaking in full sentences Cardiac: Tachycardia, regular rhythm, S1S2 intact, no murmurs rubs or gallops GI: abdomen soft, non-tender, non-distended; no palpable mass or hepatosplenomegaly Skin: Induration erythema and warmth involving dorsum of right foot surrounding nidus shallow ulceration to dorsum, area of induration erythema and warmth extend over the lateral aspect of foot, DP pulse intact sensate full range of motion no crepitus no bulla no purulence no fluctuance Neuro: AAOx3, normal speech, moving all extremities Extremities: See skin; full range of motion bilateral lower extremities neurovascular exam intact Psych: Appropriate mood and affect Course Vital Signs Vital signs: Vital Signs Temperature 37.3 C 09/24/23 20:50 Pulse 115 H 09/24/23 20:50 Respiratory Rate 09/24/23 20:50 Blood Pressure 163/88 H 09/24/23 20:50 Pulse Oximetry 97 09/24/23 20:50 Temperature 37.3 C 09/24/23 20:50 Temperature Source Skin 09/24/23 20:50 Pulse 115 H 09/24/23 20:50 Respiratory Rate 20 09/24/23 20:50 Respiratory Effort Normal, Non-Labored 09/24/23 20:54 Blood Pressure 163/88 H 09/24/23 20:50 Blood Pressure Position Sitting 09/24/23 20:50 Pulse Oximetry 97 09/24/23 20:50 Oxygen Delivery Method Room Air 09/24/23 20:50 Oxygen Flow Rate 0 09/24/23 20:50 Pain Level 7 09/24/23 20:50 Lab/Test Results Lab/Test Results: 09/24/23 21:16 Blood Blood Culture - Pending 09/24/23 21:16 Blood Blood Culture - Pending Medical Decision Making 27-year-old male presents with cellulitis to the dorsum of his right foot red ness induration warmth developed over the last day no crepitus no bulla no fluctuance no purulence, likely nidus shallow ulceration to dorsum of foot, patient has been wearing work boots over the last 2 days working extensively outdoors. Neurovascular exam of limb intact. No to be tachycardic on arrival otherwise afebrile nontoxic. Will obtain cultures, basic labs, will administer empiric clindamycin given concern for cellulitis. No evidence of necrotizing fasciitis at this time given examination close reassessment of symptoms after medication including anti-inflammatory and fluids. Consider home with oral antibiotics versus admission for close observation 23: 33 great improvement of physical symptoms and vital signs after fluids and antibiotics. Reduction of erythema and induration in foot. Patient responding to clindamycin will transition to oral clindamycin as outpatient. 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
[2023-09-24] MEDS: CLINDAMYCIN 600 MG/50 ML BAG 100 MG IVPB (21:39)
[2023-09-24] MEDS: Normal Saline 1,000 ML 1000 ML IV (21:39)
[2023-09-24] MEDS: Ketorolac 15 MG/ML VIAL IVP (21:39)
[2023-09-24 21:45] LABS: Absolute Lymphocyte Count 2.03 10^3/uL (1.2-3.4); Absolute Monocyte Count 1.76 10^3/uL (0.1-0.8); Basophils % 0.2; Eosinophils % 0.2; HCT 40.5 % (40.0-50.0); HGB 13.7 g/dL (13.5-17.5); Immature Grans % 0.5; Lymphocytes % 10.5; MCH 28.4 pg (27.0-33.0); MCHC 33.8 % (32.0-36.0); MCV 84 fL (80-95); MPV 10.9 fL (8.0-11.0); Monocytes % 9.1; Neutrophils % 79.5; Platelet Count 265 10^3/uL (130-400); RBC 4.83 10^6/uL (4.36-5.78); RDW 13.1 % (11.8-14.1); WBC 19.38 10^3/uL (4.4-10.8)
[2023-09-24 21:58] LABS: Absolute Basophil Count 0.04 10^3/uL (0.0-0.2); Absolute Eosinophil Count 0.04 10^3/uL (0.0-0.7); Absolute Neutrophil Count 15.41 10^3/uL (1.2-6.7); Diff Comment Diff Reviewed; RBC Morphology Normal
[2023-09-24 22:00] LABS: ALT 24 U/L (16-63); AST 22 U/L (15-37); Alkaline Phosphatase 84 U/L (46-116); Anion Gap 10.9 mmol/L (3-11); BUN 13 mg/dL (7-18); Bilirubin, Total 1.1 mg/dL (0.2-1.0); CO2 26.1 mmol/L (21.0-32.0); CREATININE 0.9 mg/dL (0.70-1.30); Calcium 9.3 mg/dL (8.5-10.1); Chloride 102 mmol/L (98-107); Estimated GFR 119.31 (mL/min/1.73m2); Glucose 136 mg/dL (74-106); Potassium 3.3 mmol/L (3.5-5.1); Sodium 139 mmol/L (136-145); Total Protein 8.4 g/dL (6.4-8.2)
[2023-09-24 23:02] VITALS: BP 156/82; PULSE 98; O2SAT 97
[2023-09-24 23:51] VITALS: BP 176/94; PULSE 92; RESP 18; O2SAT 96
== END 2023-09-24 23:55 | disposition home or self-care (01) ==
PROVIDERS: Emergency Provider Emergency Medicine; PCP Internal Medicine
DX: L03.115 Cellulitis of right lower limb (principal); Z87.891 Personal history of nicotine dependence
CPT/HCPCS: 36415; 80053; 87040; 96365; 96375; 99284; 85025; 99283; J0737; J1885

== ENCOUNTER 2023-10-02 15:36 | Emergency (ER) | payer SELFPAY ==
--- NOTE | 2023-10-02 15:41 | ED.GENADUL_ITS ---
Discharge Plan Discharge Details Chief Complaint: PsychEval Clinical Impression: Auditory hallucinations Primary Care Provider: Fazal Tobar ED Provider: Sergio Holloway [facility] General Date/Time Provider Initiated Documentation: 10/02/23 15:39 . [facility] Narrative: MDM This is an anxious appearing normothermic and not tachycardic 27-year-old male with history of cocaine use and is now auditory hallucinations concerning for t he possibility of rhabdomyolysis for which patient will undergo labs, ECG and monitoring. Patient denies suicidal and homicidal ideation however will have him meet with [facility] when he is medically cleared. He also reports not being adherent with his antibiotics for his right foot cellulitis. Currently his right foot has no signs of cellulitis and no indication for additional antibiotics. No pain or proportion to suggest necrotizing soft tissue infection. Not altered to suggest encephalitis. No nuchal rigidity to suggest meningitis. Patient is not altered nor febrile to suggest anticholinergic toxidrome. No opiate use no respiratory depression so doubt opiate toxidrome. Patient denies history of ethanol use so not suspicious for ethanol withdrawal. Patient does have an elevated blood pressure and this certainly could be secondary to sympathomimetic toxidrome. Will monitor in the ED and reassess. Patient is feeling quite anxious and will provide 1 mg of oral lorazepam as I do not want to provide sodium channel blocking hydroxyzine prior to ECG given concern for possible cocaine toxicity. 4:30 PM CBC with mild leukocytosis and mild anemia. Compared to prior leukocytosis improved anemia is new. No thrombocytopenia. 5 PM Negative ethanol level. Negative acetaminophen level. Basic metabolic panel showing very mild hyperglycemia but no anion gap. Normal bicarbonate??not consistent with DKA. Normal creatinine. No BITA. CK mildly elevated twice upper limit of normal at 597 units/L. Given less than 5 times greater than the upper limit of normal and well less than 2000 I am not suspicious for rhabdomyolysis so no indication for IV hydration as patient is taking p.o. and making urine. Normal salicylates. Normal TSH. 5:15 PM Patient tolerated p.o. but was quite restless. I offered him intramuscular medicines which he accepted. I ordered 10 mg of intramuscular diazepam given his choreoathetoid movements. 6 PM Patient resting more comfortably following 10 mg of diazepam. Negative troponin. 10:28 PM Patient assessed multiple times throughout my shift. He has been calm sleeping following diazepam. He will require reassessment with possibility of crisis evaluation if he has persistent hallucinations. I have ordered a urinalysis to assess for myoglobinuria. Will sign patient out to the oncoming overnight provider. Chronic conditions affecting the care of the patient: N/A History obtained from an outside historian: Patient's sister External record review: No [facility] EMR records Diagnostic interpretations performed by me: Per my independent interpretation EKG shows: Normal sinus rhythm at a rate of 62 with interventricular conduction delay and a QRS of 111 ms. VT and QTc within normal limits. No ST segment abnormalities. No T wave inversion. No acute injury pattern. No prior for comparison. ]Medications: Lorazepam Social determinants of health affecting disposition: N/A Management discussed with: Oncoming overnight provider . Treatment/interventions considered: N/A Response to therapies provided: N/A HPI This is a previously healthy 27-year-old male arrived to the emergency department via private vehicle with his sister in the setting of auditory hallucinations. Patient reports feeling anxious and fidgety. He feels intermittently like his hands and feet are hot and swollen. He insufflated co shay 2 days ago. He denies routine tobacco, ethanol and illicits. He was recently treated for right foot cellulitis with clindamycin. He did not complete his course of clindamycin. He feels like the cellulitis has moved into his hands. He denies chest pain. She denies homicidal and suicidal ideation. He denies visual hallucinations. He denies prior history of similar symptoms. He is on no routine medications. Sister says that the patient was exceedingly anxious at home and paramedics were called. Patient reportedly declined transfer. He denies fevers chills nausea vomiting chest pain shortness of breath. Exam General: Well-appearing in no mild distress speaking in complete sentences. Head: Normocephalic, atraumatic. Eye: Extraocular eye movements intact. No conjunctival injection. No scleral icterus. Ear, nose, mouth, throat: Grossly normal inspection. Normal voice, handling secretions normally. Neck: Trachea midline. Cardiovascular: Well-perfused distal extremities. Respiratory: Nonlabored respiration. Gastrointestinal: Nondistended abdomen. Musculoskeletal: No edema. Moving all 4 extremities spontaneously. Skin: Bilateral feet warm well-perfused with 2+ PT and DP pulses. No signs of cellulitis to bilateral lower extremities. Neurologic: Alert and appropriate, no apparent acute deficits. GCS 15. Patient with choreoathetoid movements Psychiatric: Anxious and intermittently tremulous. No flight of ideas. No pressured speech. Related Data Allergies Allergy/AdvReac Type Severity Reaction Status Date / Time Penicillins Allergy Anaphylaxis Unverified 09/24/23 20:54 General YOVANNY: 3 Medical Decision Making Quality:SDOH Health Related Social Needs: No Data to Display PFSH All Active Problems (Updated 10/02/23 @ 16:10 by Sergio Holloway MD) Auditory hallucinations (Acute) Cellulitis of foot (Acute) Ankle strain (Acute) Concussion (Acute) Social History Smoking/Tobacco Use Status: Former Tobacco Use Smoking risk assessment performed?: Yes Alcohol Intake: current Alcohol Intake frequency: a few times a week Drug use: Occasionally Substance use type: marijuana and crack/cocaine Housing: house Do you feel safe at home: Yes Do you feel safe in your relationship?: Yes
[2023-10-02 15:50] VITALS: BP 158/108; PULSE 96; RESP 20; TEMP 37.1; O2SAT 98
--- NOTE | 2023-10-02 16:00 | RT.EKG_ITS ---
APPROVED REPORT Exam: Resting ECG Reason for Exam: Cocaine Patient Location: E HR:62 bpm ECG Measurements Heart Rate 62 AXIS WA 139 P -7 QRSd 111 QRS 28 QT 394 T 25 QTc 393 Conclusion Sinus rhythm...normal P axis, V-rate 60- 99 Atrial premature complexes in couplets...pair SV complexes w/ short R-R Normal sinus rhythm at a rate of 62 with interventricular conduction delay and a QRS of 111 ms. WA a nd QTc within normal limits. No ST segment abnormalities. No T wave inversion. No acute injury pat tern. No prior for comparison.
[2023-10-02 16:29] LABS: Abs Immature Grans 0.04 10^3/uL (0.0-0.06); Absolute Basophil Count 0.05 10^3/uL (0.0-0.2); Absolute Eosinophil Count 0.34 10^3/uL (0.0-0.7); Absolute Lymphocyte Count 2.62 10^3/uL (1.2-3.4); Absolute Monocyte Count 1.26 10^3/uL (0.1-0.8); Basophils % 0.5; Eosinophils % 3.1; HCT 39.3 % (40.0-50.0); HGB 13.2 g/dL (13.5-17.5); Immature Grans % 0.4; Lymphocytes % 23.9; MCH 28.3 pg (27.0-33.0); MCHC 33.6 % (32.0-36.0); MCV 84 fL (80-95); MPV 10.7 fL (8.0-11.0); Monocytes % 11.5; Neutrophils % 60.6; Platelet Count 324 10^3/uL (130-400); RBC 4.67 10^6/uL (4.36-5.78); RDW 12.9 % (11.8-14.1); WBC 10.97 10^3/uL (4.4-10.8)
[2023-10-02 16:30] LABS: Absolute Neutrophil Count 6.65 10^3/uL (1.2-6.7)
[2023-10-02] MEDS: LORazepam 1 MG TAB PO (16:40)
[2023-10-02 16:52] LABS: Anion Gap 10.3 mmol/L (3-11); BUN 15 mg/dL (7-18); CO2 26.7 mmol/L (21.0-32.0); CREATININE 0.9 mg/dL (0.70-1.30); Calcium 8.5 mg/dL (8.5-10.1); Chloride 103 mmol/L (98-107); Creatine Kinase 597 U/L (39-308); Estimated GFR 119.31 (mL/min/1.73m2); Glucose 110 mg/dL (74-106); Potassium 3.8 mmol/L (3.5-5.1); Sodium 140 mmol/L (136-145)
[2023-10-02 16:54] LABS: Salicylate < 2.8 mg/dL (<2.8)
[2023-10-02 16:55] LABS: Acetaminophen < 2 ug/mL (10-30)
[2023-10-02 17:00] LABS: ETHANOL BLOOD < 3.0 mg/dL (<10)
[2023-10-02 17:38] LABS: Troponin I < 50 ng/L (< or =60)
[2023-10-02] MEDS: diazePAM 10 MG/2 ML SYR IM (18:37)
--- NOTE | 2023-10-02 23:28 | W.EDPROG ---
Date of service: 10/02/23 Time of Service: 23:28 Medical Decision Making This patient was signed out to me. Please see previous notes for H&P and initial eval. In brief, 27yo M presenting with agitation and hallucinations after using cocaine. Thought to be 2/t to drug use. CK mildly elevated, labs otherwise reassuirng. Medicated with benzodiazapenes and now sleeping comfortably. Plan to allow time to metabolize and reassess; may need psychiatric evaluation if mental status does not clear. Overnight appeared to be sleeping. Did not wake for assessment. Signed out to oncoming physician, plan remains as above. Quality:[facility] Health Related Social Needs: No Data to Display Sign Out Sign Out Data: Sign Out Comment: Patient with cocaine use and agitation with mildly elevated CK and choreiform movements now resting status post intramuscular diazepam and oral lorazepam. Patient will require reassessment and if he has persistent hallucinations need to meet with [facility] human services. Urinalysis ordered to assess for myoglobinuria. Last updated by Sergio Holloway MD at 10/02/23 22:33 Discharge Plan Discharge Details Chief Complaint: PsychEval Clinical Impression: Auditory hallucinations Primary Care Provider: Fazal Tobar ED Provider: Zayra Albarran
[2023-10-03 07:54] LABS: Bilirubin Small (Negative); Blood Negative (Negative); Clarity Clear (Clear); Glucose Negative (Negative); Ketones 40 mg/dL (Negative); Leukocyte Esterase Negative (Negative); Nitrite Negative (Negative); Specific Gravity 1.025 (1.005-1.025); Urobilinogen 0.2 mg/dL (Up to 0.2)
[2023-10-03 07:57] LABS: *AMPHETAMINES SCREEN URINE Negative (Negative); *BARBITURATES SCREEN URINE Negative (Negative); *BENZODIAZEPINES SCREEN URINE Positive (Negative); Cannabinoids THC Positive (Negative); Cocaine Screen,Urine Positive (Negative); METHADONE URINE SCREEN Negative (Negative); OPIATES URINE SCREEN Negative (Negative)
[2023-10-03 08:02] LABS: Tricyclic Antidepressants Negative (Negative)
--- NOTE | 2023-10-03 12:00 | ED.PROG_ITS ---
Date of service: 10/03/23 Time of Service: 12:00 Medical Decision Making Patient was signed out to me by my colleague for follow-up/reassessment. Patient is alert and interactive, he denies any homicidal or suicidal ideations. Patient appears well. He has been seen and assessed by mental health. They feel that he is in a good place for safety plan and disposition home. Patient will be discharged home. Discussed red flags which to return. I have extensively reviewed the treatment plan and discharge instructions with the patient. I have addressed all patient concerns at this time. The patient was made aware of what symptoms to monitor for that would warrant a return to the emergency department. Discussed the plan with the patient, they demonstrate verbal understanding and agreement with our assessment and plan at this time. The documentation in this chart was dictated using [employer] dictation software. Please excuse any dictation errors. Quality:[facility] Health Related Social Needs: No Data to Display Sign Out Sign Out Data: Sign Out Comment: Patient with cocaine use and agitation with mildly elevated CK and choreiform movements now resting status post intramuscular diazepam and oral lorazepam. Patient will require reassessment and if he has persistent hallucinations need to meet with [facility] human services. Urinalysis ordered to assess for myoglobinuria. Last updated by Sergio Holloway MD at 10/02/23 22:33 Sign Out Comment: 27yo M presenting with agitation and hallucinations after using cocaine. Thought to be 2/t to drug use. CK mildly elevated, labs otherwise reassuring. Medicated with benzodiazepines and now sleeping comfortably. Plan to allow time to metabolize and reassess; may need psychiatric evaluation if mental status does not clear. Pending UA for myoglobin, reassessment when awake. Last updated by Zayra Albarran MD at 10/03/23 06:25 Discharge Plan Disposition Patient Disposition: Home Condition: Good Discharge Details Chief Complaint: PsychEval Clinical Impression: Auditory hallucinations Primary Care Provider: Fazal Tobar ED Provider: Partha Jo Discharge Instructions Additional Instructions: Please follow-up closely with your mental health advocates for continued management. Please utilize the resources you have been provided. If you notice any worsening of your symptoms, or any new symptoms such as vomiting, diarrhea, fever, chills, shortness of breath, chest pain, numbness, weakness, or fainting , please return immediately to the emergency department for reevaluation. Please follow up with your primary care provider as soon as possible for reassessment and reevaluation. As always, it was a pleasure participating in your medical care today. Referrals: Fazal Tobar MD [Primary Care Provider] -
--- NOTE | 2023-10-03 13:26 | CMPROGNOTE_ITS ---
Date of service: 10/03/23 Time of Service: 13:26 Care Management Progress Note Progress Note Text Progress Note Text: GRACIE huddled with staff regarding Leno's plan of care. Pro [facility], stated that he and Leno created a safety plan, and Leno will be discharged home with close follow up from [facility]. was in the huddle, and agreed with the plan for discharge.
--- NOTE | 2023-10-03 13:26 | PDOC.CMPRO ---
Date of service: 10/03/23 Time of Service: 13:26 Care Management Progress Note Progress Note Text Progress Note Text: GRACIE huddled with staff regarding Leno's plan of care. Pro [facility], stated that he and Leno created a safety plan, and Leno will be discharged home with close follow up from [facility]. was in the huddle, and agreed with the plan for discharge.
[2023-10-03 14:11] VITALS: BP 134/78; PULSE 78; RESP 16; TEMP 37.1; O2SAT 98
--- NOTE | 2023-10-04 11:58 | NUR.NOTE ---
Accessed Pt chart to obtain the V number to be able to print a label
== END 2023-10-03 14:17 | disposition home or self-care (01) ==
PROVIDERS: Emergency Medicine; Emergency Provider Student in an Organized Health Care Education/Training Program; PCP Internal Medicine
DX: R44.0 Auditory hallucinations (principal); F41.9 Anxiety disorder, unspecified; L98.9 Disorder of the skin and subcutaneous tissue, unspecified; G25.5 Other chorea; F14.90 Cocaine use, unspecified, uncomplicated; Z88.0 Allergy status to penicillin
CPT/HCPCS: 00123; 80048; 80307; 82550; 93005; 96372; 99285; 80320; 80329; 81003; 84443; 84484; 85025; 93010; J3360

== ENCOUNTER 2025-05-24 12:38 | Outpatient (REF) | payer MEDICAID, SELFPAY ==
[2025-05-24 16:02] LABS: Abs Immature Grans 0.04 10^3/uL (0.0-0.06); HCT 42.4 % (40.0-50.0); HGB 14.0 g/dL (13.5-17.5); Immature Grans % 0.4 %; MCH 27.0 pg (27.0-33.0); MCHC 33.0 % (32.0-36.0); MCV 82 fL (80-95); MPV 11.6 fL (8.0-11.0); Platelet Count 309 10^3/uL (130-400); RBC 5.19 10^6/uL (4.36-5.78); RDW 13.3 % (11.8-14.1); RDW-SD 39.4 fL; WBC 11.03 10^3/uL (4.4-10.8)
[2025-05-24 17:06] LABS: Hemoglobin A1C 5.0 % (<5.7)
[2025-05-24 17:47] LABS: TSH (W/Ref FT4) 1.28 uIU/mL (0.55-4.78)
[2025-05-24 17:51] LABS: ALT 36 U/L (10-49); AST 31 U/L (<34); Albumin 4.6 g/dL (3.2-5.0); Alkaline Phosphatase 98 U/L (46-116); Anion Gap 8.4 mmol/L (3-11); BUN 15 mg/dL (9-23); Bilirubin, Total 0.30 mg/dL (0.2-1.2); CO2 25.6 mmol/L (20.0-31.0); Calcium 9.6 mg/dL (8.3-10.6); Chloride 106 mmol/L (98-107); Cholesterol 195 mg/dL (<200); Glucose 83 mg/dL (74-106); HDL Cholesterol 53 mg/dL (>40); Potassium 4.6 mmol/L (3.5-5.1); Sodium 140 mmol/L (136-145); Total Protein 7.8 g/dL (5.7-8.2)
[2025-05-24 23:48] LABS: Hepatitis C Ab w Rflx HCV PCR Negative (Negative)
[2025-05-24 23:50] LABS: HIV-1/2 Ag & Ab Screen Negative (Negative)
== END 2025-05-24 12:39 | disposition home or self-care (01) ==
LOC: NCHCN 12:38
PROVIDERS: PCP Nurse Practitioner Family; Visit Provider Nurse Practitioner Family
DX: E66.9 Obesity, unspecified (principal); Z11.59 Encounter for screening for other viral diseases; F11.21 Opioid dependence, in remission
CPT/HCPCS: 80053; 80061; 86803; 87389; 83036; 84443; 85025